=== PATIENT | female | born 1940 | race Asian ===

== ENCOUNTER 2017-01-13 16:47 | Emergency (ER) | payer MEDICARE, OTHER ==
[2017-01-13] MEDS ORDERED: ONDANSETRON 4 MG TAB.RAPDIS PO ONE (17:25)
[2017-01-13] MEDS ORDERED: ASPIRIN 81 MG TABLET, CHEWABLE PO ONE (17:25)
--- NOTE | 2017-01-13 17:28 | ER Document Report ---
ED Medical Screen (RME) - General Chief Complaint: Vomiting Stated Complaint: VOMITING Time Seen by Provider: 01/13/17 17:24 Mode of Arrival: Wheelchair Information source: Relative Notes: Patient is a 76-year-old female with history of stroke who presents to the ER today for 1 day of chest pain, nausea and vomiting. Family member states that she has not given her anything to eat since noon today because of the vomiting. Patient denies any shortness of breath, history of heart attack. Patient denies any abdominal pain. Last bowel movement was yesterday and normal. No diarrhea. No fevers or chills. TRAVEL OUTSIDE OF THE [place] IN LAST 30 DAYS: No - Related Data Allergies/Adverse Reactions: No Known Allergies Allergy (Verified 01/13/17 17:22) Past Medical History - General Information source: Relative - Social History Chew tobacco use (# tins/day): No Frequency of alcohol use: None Drug Abuse: None Renal/ Medical History: Denies: Hx Peritoneal Dialysis Review of Systems - Review of Systems Cardiovascular: See HPI Gastrointestinal: See HPI Physical Exam - Vital signs Vitals: Temp Pulse Resp BP Pulse Ox 97.9 F 85 20 148/112 H 96 01/13/17 16:56 01/13/17 16:56 01/13/17 16:56 01/13/17 16:56 01/13/17 16:56 - Notes Notes: PHYSICAL EXAMINATION: GENERAL: mildly ill appearing, old vomit on shirt, no active vomiting in no acute distress. LUNGS: CTAB and equal. No wheezes rales or rhonchi. HEART: Regular rate and rhythm without murmurs Course - Vital Signs Vital signs: Temp Pulse Resp BP Pulse Ox 97.9 F 85 20 148/112 H 96 01/13/17 16:56 01/13/17 16:56 01/13/17 16:56 01/13/17 16:56 01/13/17 16:56
--- NOTE | 2017-01-13 17:53 | RADIOLOGY REPORT (SQ) ---
EXAM DESCRIPTION: CHEST SINGLE VIEW COMPLETED DATE/TIME: 01/13/2017 5:44 pm REASON FOR STUDY: cp/n/v COMPARISON: 10/21/2009 EXAM PARAMETERS: NUMBER OF VIEWS: One view. TECHNIQUE: Single frontal radiographic view of the chest acquired. RADIATION DOSE: NA LIMITATIONS: None. FINDINGS: LUNGS AND PLEURA: No opacities, masses or pneumothorax. No pleural effusion. MEDIASTINUM AND HILAR STRUCTURES: No masses. Contour normal. HEART AND VASCULAR STRUCTURES: Heart normal in size. Normal vasculature. BONES: No acute findings. HARDWARE: None in the chest. OTHER: No other significant finding. IMPRESSION: NO ACUTE RADIOGRAPHIC FINDING IN THE CHEST. TECHNICAL DOCUMENTATION: JOB ID: [id number] [employer]- All Rights Reserved
[2017-01-13] MEDS ORDERED: NORMAL SALINE 1000 ML 1,000 ML IV ONE (18:39)
--- NOTE | 2017-01-13 18:39 | ER Document Report ---
ED General - General Chief Complaint: Vomiting Stated Complaint: VOMITING Time Seen by Provider: 01/13/17 17:24 Mode of Arrival: Wheelchair Cannot obtain history due to: Dementia Notes: Patient is a 76-year-old female with a past medical history of a prior CVA, dementia, who presents with concerns of vomiting for the past 36 hours. The patient is quite demented, not able to provide significant meaningful history. Her family member at the bedside reports that she has had 2-3 episodes of nonbilious vomiting since lunch yesterday. Patient has also complained of some discomfort in her upper abdomen or low left chest but denies this at this time. She has not had any diarrhea. Nobody else in the home is sick. The family members uncertain whether or not patient has never had abdominal surgeries in the past. The patient has not had fever. History is otherwise limited secondary to patient's inability to communicate TRAVEL OUTSIDE OF THE [place] IN LAST 30 DAYS: No - Related Data Allergies/Adverse Reactions: No Known Allergies Allergy (Verified 01/13/17 17:22) Home Medications: Current Home Medications No Home Medications 01/13/17 [History] Past Medical History - General Information source: Relative - Social History Smoking Status: Never Smoker Chew tobacco use (# tins/day): No Frequency of alcohol use: None Drug Abuse: None Lives with: Family Family History: Reviewed & Not Pertinent Patient has suicidal ideation: No Patient has homicidal ideation: No Renal/ Medical History: Denies: Hx Peritoneal Dialysis Review of Systems - Review of Systems Notes: Constitutional: Negative for fever. HENT: Negative for sore throat. Eyes: Negative for visual changes. Cardiovascular: Negative for chest pain. Respiratory: Negative for shortness of breath. Gastrointestinal: Positive for vomiting Genitourinary: Negative for dysuria. Musculoskeletal: Negative for back pain. Skin: Negative for rash. Neurological: Negative for headaches, weakness or numbness. 10 point ROS negative except as marked above and in HPI. Physical Exam - Vital signs Vitals: Temp Pulse Resp BP Pulse Ox 97.9 F 85 20 148/112 H 96 01/13/17 16:56 01/13/17 16:56 01/13/17 16:56 01/13/17 16:56 01/13/17 16:56 Interpretation: Hypertensive Notes: PHYSICAL EXAMINATION: GENERAL: Well-appearing, well-nourished and in no acute distress. Moving her tongue and mouth in a repetitive fashion. HEAD: Atraumatic, normocephalic. EYES: Pupils equal round and reactive to light, extraocular movements intact, sclera anicteric, conjunctiva are normal. ENT: nares patent, oropharynx clear without exudates. Moderately dry mucous membranes. NECK: Normal range of motion, supple without lymphadenopathy LUNGS: Breath sounds clear to auscultation bilaterally and equal. No wheezes rales or rhonchi. HEART: Regular rate and rhythm without murmurs ABDOMEN: Soft, nontender, normoactive bowel sounds. No guarding, no rebound. There is a firm mass in the suprapubic quadrant EXTREMITIES: Normal range of motion, no pitting or edema. No cyanosis. NEUROLOGICAL: No focal neurological deficits. Moves all extremities spontaneously and on command. PSYCH: Making repetitive noises with her mouth, appears demented SKIN: Warm, Dry, normal turgor, no rashes or lesions noted. Course - Re-evaluation Re-evalutation: 01/13/17 18:36 Patient is a profoundly demented patient who presents with vomiting but having difficulty communicating other symptoms. On examination she does appear mildly dehydrated but in no acute distress. She does have a notable mass in the suprapubic region that appears to be a large uterine mass. The remainder of her abdominal examination is overall unremarkable. Although in triage they noted that the patient was apparently complaining of chest pain her family member at the bedside states it is very difficult for her to communicate accurately what symptoms she is having. Will obtain labs, CT abdomen pelvis, urinalysis, and reassess 01/13/17 23:22 CT scan unremarkable with exception of a cystic lesion in the liver which I have informed the patient of and provided them report of their imaging study for follow-up. Her clinical history is not consistent with any acute pathology is related to the CT finding. Patient is tolerating oral intake without difficulty. Her labs are broadly unremarkable. She remains without any significant discomfort. At this time will discharge with return precautions and follow-up recommendations. Verbal discharge instructions given a the bedside and opportunity for questions given. Medication warnings reviewed. Family is in agreement with this plan and has verbalized understanding of return precautions and the need for primary care follow-up in the next 24-72 hours. - Vital Signs Vital signs: Temp Pulse Resp BP Pulse Ox 97.9 F 85 20 148/112 H 96 01/13/17 16:56 01/13/17 16:56 01/13/17 16:56 01/13/17 16:56 01/13/17 16:56 - Laboratory Result Diagrams: 01/13/17 19:07 01/13/17 19:07 Laboratory results interpreted by me: 01/13/17 01/13/17 01/13/17 19:07 19:07 19:19 Seg Neutrophils % 78.5 H Sodium 145.3 H Urine Ketones TRACE H Urine Nitrite POSITIVE H - Diagnostic Test Radiology reviewed: Image reviewed, Reports reviewed Radiology results interpreted by me: 01/13/17 19:58 Chest x-ray: No acute infiltrate or pneumothorax - EKG Interpretation by Me Additional EKG results interpreted by me: 01/13/17 19:59 Normal sinus rhythm. Rate 64. No ST elevations or depressions. QTC is 450. Discharge - Discharge Clinical Impression: Abdominal discomfort Vomiting Qualifiers: Vomiting type: unspecified Vomiting Intractability: non-intractable Nausea presence: with nausea Qualified Code(s): R11.2 - Nausea with vomiting, unspecified Condition: Good Disposition: HOME, SELF-CARE Additional Instructions: You have been seen in the Emergency Department (ED) today for nausea and vomiting. Your work up today has not shown a clear cause for your symptoms. Your CT scan did show an incidental finding of a cystic mass in her liver which should be followed up as an outpatient. You have been prescribed Zofran; please use as prescribed as needed for your nausea. Follow up with your doctor as soon as possible regarding today's emergent visit and your symptoms of nausea. Return to the Emergency Department (ED) if you develop abdominal pain, bloody vomiting, bloody diarrhea, if you are unable to tolerate fluids due to vomiting , or if you develop other symptoms that concern you.
[2017-01-13 19:22] LABS: ABSOLUTE BASOPHILS # (AUTO) 0.1 10^3/uL (0.0-0.2); ABSOLUTE EOSINOPHILS # (AUTO) 0.1 10^3/uL (0.0-0.6); ABSOLUTE MONOCYTES (AUTO) 0.5 10^3/uL (0.1-1.4); ABSOLUTE NEUT (AUTO) 5.7 10^3/uL (1.7-8.2); BASOPHILS % (AUTO) 0.8 % (0-2); EOSINOPHILS % (AUTO) 0.7 % (0-6); HEMATOCRIT 39.6 % (36.0-47.0); HEMOGLOBIN 13.6 g/dL (12.0-15.5); HGB HCT DIFFERENCE 1.2; LYMPHOCYTES % (AUTO) 13.2 % (13-45); MEAN CORPUSCULAR HEMOGLOBIN 30.9 pg (27.0-33.4); MEAN CORPUSCULAR HGB CONC 34.3 g/dL (32.0-36.0); MEAN CORPUSCULAR VOLUME 90 fl (80-97); MONOCYTES % (AUTO) 6.8 % (3-13); RED BLOOD COUNT 4.39 10^6/uL (3.72-5.28); RED CELL DISTRIBUTION WIDTH 12.7 % (11.5-14.0); SEGMENTED NEUTROPHILS % (AUTO) 78.5 % (42-78); WHITE BLOOD COUNT 7.3 10^3/uL (4.0-10.5)
[2017-01-13 19:32] LABS: ALANINE AMINOTRANSFERASE 36 U/L (9-52); ALBUMIN 4.2 g/dL (3.5-5.0); ALKALINE PHOSPHATASE 111 U/L (38-126); ANION GAP 16 (5-19); ASPARTATE AMINO TRANSFERASE 24 U/L (14-36); BILIRUBIN,DIRECT 0.3 mg/dL (0.0-0.4); BILIRUBIN,TOTAL 0.8 mg/dL (0.2-1.3); BLOOD UREA NITROGEN 13 mg/dL (7-20); CALCIUM 9.5 mg/dL (8.4-10.2); CARBON DIOXIDE 26 mmol/L (22-30); CHLORIDE 103 mmol/L (98-107); CREATININE RESULT 0.72 mg/dL (0.52-1.25); GLUCOSE 96 mg/dL (75-110); LIPASE 69.2 U/L (23-300); POTASSIUM 3.6 mmol/L (3.6-5.0); SODIUM 145.3 mmol/L (137-145); TOTAL PROTEIN 7.2 g/dL (6.3-8.2)
[2017-01-13 20:20] LABS: APPEARANCE,URINE SLIGHTLY-CLOUDY; BILIRUBIN,URINE NEGATIVE (NEGATIVE); GLUCOSE, URINE NEGATIVE (NEGATIVE); KETONES,URINE TRACE mg/dL (NEGATIVE); LEUKOCYTE ESTERASE,URINE NEGATIVE (NEGATIVE); NITRITE,URINE POSITIVE (NEGATIVE); PROTEIN,URINE NEGATIVE (NEGATIVE); URINE SPECIFIC GRAVITY 1.011; UROBILINOGEN,URINE NEGATIVE mg/dL (<2.0)
--- NOTE | 2017-01-13 20:50 | EKG REPORT ---
SEVERITY:- NORMAL ECG - SINUS RHYTHM : Confirmed by: Berta Choi 13-Jan-2017 20:48:46
--- NOTE | 2017-01-13 23:07 | RADIOLOGY REPORT (SQ) ---
EXAM DESCRIPTION: CT ABD/PELVIS NO ORAL OR IV CLINICAL HISTORY: 76 years Female, generalized abdominal pain COMPARISON: None. TECHNIQUE: No contrast. This exam was performed according to our departmental dose-optimization program, which includes automated exposure control, adjustment of the mA and/or kV according to patient size and/or use of iterative reconstruction technique. Limitation: Arm positioning. FINDINGS: No acute intra-abdominal findings. No significant free fluid. Normal appendix. Unremarkable gallbladder. Moderate to severe L1 anterior vertebral compression deformity and mild T12 anterior vertebral compression deformity. Minimal T11 anterior vertebral compression deformity. Moderate coronary arterial calcification. 4.2 cm macrolobulated cystic mass of the right hepatic lobe not definitively characterized. Calcified bilateral mammogram prostheses. 1.3 cm exophytic likely benign cyst of the right kidney. Atherosclerosis. Minimal bibasilar atelectasis or scar. Unenhanced [id number] structures, lymphatics, and vasculature appear otherwise unremarkable. IMPRESSION: 1. Moderate to severe L1 anterior vertebral compression deformity of indeterminate age. 2. Indeterminate 4.2 cm cystic hepatic mass. Recommend further baseline evaluation with dynamic contrast MRI or CT of the liver.
[2017-01-13] MEDS ORDERED: ONDANSETRON ODT 4 MG TAB (6 TAB/DSPK) PO PRN (23:23)
[2017-01-14 00:18] VITALS: BP 188/78
== END 2017-01-14 00:15 | disposition home or self-care (01) ==
LOC: ER 16:47
DX: R10.10 Upper abdominal pain, unspecified (principal); R11.2 Nausea with vomiting, unspecified; R19.7 Diarrhea, unspecified; Z86.73 Personal history of transient ischemic attack (TIA), and cerebral infarction without residual deficits
CPT/HCPCS: 93005; 99285; 96360; 96361; 36415; 83690; 85025; 80053; 81001; 84484; 71010; 74176; 93010; A9270 ×3; J7030; S0119